=== PATIENT | female | born 1950 | race American Indian/Alaskan Native ===

== ENCOUNTER 2020-01-21 08:02 | Emergency (ER) | payer MEDICARE ==
--- NOTE | 2020-01-21 08:26 | Emergency Department Report ---
HPI - General Chief Complaint: Cardiac Arrest/CPR Time Seen by Provider: 01/21/20 08:12 - HPI HPI: This is a 69-year-old -[place] female presents to the emergency department via EMS from home in cardiac arrest. The patient was seen awake this morning and they came back shortly afterwards and the patient was slumped over and unresponsive. When EMS arrived the patient was pulseless and CPR/ACLS protocol was initiated. The patient was intubated and had a right lower extremity intraosseous line placed. She received chest compressions, 5 rounds of epinephrine 1 dose of sodium bicarbonate. The patient was mostly in PEA but did have 2 rounds in which the patient went into V. fib and received 2 different defibrillations and 300 mg of amiodarone. Unknown past medical history but EMS says the patient had a breathing treatment with her at the time she went unresponsive. Upon arrival to the emergency department the patient was still pulseless and in PEA and ACLS protocol continued without interruption. ED Review of Systems ROS: Stated complaint: CARDIAC ARREST Other details as noted in HPI Comment: Unobtainable due to pts medical conditions Physical Exam - Physical Exam Physical Exam: GENERAL: Patient is ill-appearing and unresponsive. HENT: Normocephalic. Atraumatic. EYES: Pupils are fixed and dilated. NECK: Supple. Trachea appears midline. CHEST/LUNGS: There are no spontaneous respirations. HEART/CARDIOVASCULAR: There are no spontaneous heart sounds. ABDOMEN: Abdomen is soft. There is no abdominal distention. SKIN: Skin is cool but dry. NEURO: Unresponsive. Does not withdraw to painful stimuli. Does not follow any commands. MUSCULOSKELETAL: There is no obvious deformity. There is no evidence of acute injury. No palpable femoral or radial pulses. ED Medical Decision Making - Medical Decision Making This patient presents in cardiac arrest from home after she was found slumped over unresponsive, just after family had seen her awake/alive. The patient had been getting ACLS protocol by EMS for close to 30 to 35 minutes by the time they arrived to our emergency department. She had already received 5 rounds of epinephrine, 1 of sodium bicarbonate, 300 mg of amiodarone, 2 defibrillations, and the patient was intubated and receiving chest compressions. There were 2 episodes in which the patient had ventricular fibrillation but the patient was mostly in PEA. The patient arrived to our emergency department still pulseless and in PEA. We immediately continued all ACLS efforts without interruption. She received another 3 rounds of epinephrine, another dose of sodium bicarbonate. With each pulse and rhythm check the patient was pulseless and in PEA. At this time the patient had been pulseless and hypoxic for close to 45 minutes. Time of was called at 8:02 AM. The patient's grandson and granddaughter were notified of the patient's expiration. Critical Care Time: Yes Critical care time in (mins) excluding proc time.: 20 Critical care attestation.: If time is entered above; I have spent that time in minutes in the direct care of this critically ill patient, excluding procedure time. Critical care time was spent on this patient in doing her initial evaluation, supervision of ACLS protocol, discussion with the patient's family regarding expiration. Critical Care Time: 20 minutes ED Disposition Clinical Impression: Cardiac arrest Acute respiratory failure Qualifiers: Respiratory failure complication: unspecified whether with hypoxia or hypercapnia Qualified Code(s): J96.00 - Acute respiratory failure, unspecified whether with hypoxia or hypercapnia Disposition: DC-20 Is pt being admited?: No Time of Disposition: 15:13
[2020-01-21] MEDS ORDERED: SODIUM BICARB 8.4% 50 MEQ/50 ML SYRINGE IV ONE (14:11)
[2020-01-21] MEDS ORDERED: EPINEPHrine 1 MG/10 ML SYRINGE ONE (14:11)
== END 2020-01-21 12:13 ==
LOC: ED 08:02
DX: I46.9 Cardiac arrest, cause unspecified (principal); J96.00 Acute respiratory failure, unspecified whether with hypoxia or hypercapnia
CPT/HCPCS: 92950; 99291; J0171